=== PATIENT | male | born 1965 | race Caucasian/White ===

== ENCOUNTER 2020-02-23 17:03 | Outpatient (CLI) | payer OTHER ==
--- NOTE | 2020-02-23 17:43 | XRAY Report ---
Reason: Chronic Rt Knee pain. Hx of ACL repair. Procedure Date: 02/23/2020 Accession Number: [id number] / [id number] Procedure: XR - Knee 3 View RT CPT Code: Final Report FULL RESULT: EXAM: RIGHT KNEE RADIOGRAPHY EXAM DATE: 02/23/2020 05:21 PM. CLINICAL HISTORY: Chronic right knee pain. History of ACL repair. COMPARISON: None. TECHNIQUE: 3 views. FINDINGS: Bones: No acute fractures or bone lesions. Chronic fragmentation at the tibial tuberosity. Joints: Large tricompartmental osteophytes. Mild lateral joint space narrowing. Soft Tissues: Moderately sized knee effusion. IMPRESSION: 1. No acute osseous abnormalities. 2. Osteoarthritis which can be better evaluated with weightbearing radiographs on a nonemergent basis. 3. Moderately sized knee effusion. 4. 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 [facility]
== END 2020-02-23 17:04 | disposition home or self-care (01) ==
LOC: DI 17:03
PROVIDERS: ATTEND Family Medicine
DX: M17.11 Unilateral primary osteoarthritis, right knee (principal); M25.461 Effusion, right knee